=== PATIENT | male | born 1935 | race Caucasian/White ===

== ENCOUNTER 2023-02-26 16:20 | Inpatient (IN) ==
[2023-02-26] MEDS ORDERED: 0.9 % SODIUM CHLORIDE 1,000 ML IV SCH (17:00)
[2023-02-26] MEDS ORDERED: HYDROmorphone 0.5 MG/0.5 ML SYRINGE ONE (18:26)
[2023-02-26] MEDS: HYDROmorphone 0.5 MG/0.5 ML SYRINGE IV PRN (18:32)
[2023-02-26] MEDS: ACETAMINOPHEN 1,000 MG/100 ML BAG IV SCH (19:09)
[2023-02-26 19:15] LABS: Basophils # (Auto) 0.04 K/mcL (0.00-0.30); Basophils % (Auto) 0.2 % (0.0-2.0); Eosinophils # (Auto) 0.02 K/mcL (0.00-0.70); Eosinophils % (Auto) 0.1 % (0.0-7.0); Hematocrit 35.6 % (40.1-51.0); Hemoglobin 11.6 g/dL (13.7-17.5); Lymphocytes # (Auto) 1.64 K/mcL (1.50-4.80); Lymphocytes % (Auto) 9.1 % (15.5-49.0); Mean Cell Volume 90.6 fL (80.0-100.0); Mean Corpuscular HGB Conc 32.6 g/dL (31.0-36.0); Mean Platelet Volume 9.4 fL (8.8-12.5); Monocytes # (Auto) 0.84 K/mcL (0.10-0.90); Monocytes % (Auto) 4.7 % (1.0-12.0); Neutrophils % (Auto) 85.2 % (38.0-78.0); Platelet Count 255 K/mcL (140-440); RBC 3.93 M/mcL (4.63-6.08); Red Cell Distribution Width 13.6 % (11.5-14.5)
[2023-02-26 19:34] LABS: ALT/SGPT 10 U/L (<40); AST/SGOT 21 U/L (<40); Albumin 3.3 gm/dL (3.2-5.2); Albumin/Globulin Ratio 0.8 (1.0-2.3); Alkaline Phosphatase 81 U/L (39-117); Bilirubin,Direct < 0.2 mg/dL (0-0.3); Bilirubin,Total 0.6 mg/dL (0.1-1.0); Blood Urea Nitrogen 17 mg/dL (8-23); Carbon Dioxide 25 mmol/L (22-30); Chloride 98 mmol/L (96-108); Globulin 4.2 gm/dL (2.2-3.7); Glomerular Filtration Rate 80; Glucose 133 mg/dL (70-105); Lactate Dehydrogenase 223 U/L (135-225); Phosphorous 3.7 mg/dL (2.5-4.5); Triglycerides 83 mg/dL (<150); Uric Acid 5.1 mg/dL (2.5-8.0)
[2023-02-26] MEDS: oxyCODONE IR 5 MG TABLET PO PRN (19:45)
[2023-02-26] MEDS ORDERED: HALOPERIDOL LACTATE 5 MG/ML VIAL IV PRN (20:07)
[2023-02-26] MEDS ORDERED: 0.9 % SODIUM CHLORIDE 1,000 ML IV ONE (20:25)
[2023-02-26] MEDS ORDERED: ceFAZolin 1 GM VIAL ONE (20:29)
[2023-02-26] MEDS ORDERED: ceFAZolin 2 GM in DEXTROSE 5% IN WATER 50 ML IV SCH (20:30)
[2023-02-26] MEDS ORDERED: KETAMINE 50 MG/ML Syringe IV ONE (21:15)
[2023-02-26] MEDS ORDERED: SUGAMMADEX SODIUM 200 MG/2 ML VIAL IV ONE (21:15)
[2023-02-26] MEDS ORDERED: ONDANSETRON 4 MG/2 ML VIAL ONE (21:15)
[2023-02-26] MEDS ORDERED: ROCURONIUM 10 MG/ML ML IV ONE (21:15)
[2023-02-26] MEDS ORDERED: fentaNYL 100 MCG/2 ML VIAL IV ONE (21:15)
[2023-02-26] MEDS ORDERED: PHENYLephrine 1 MG/10 ML SYRINGE (ANEST) ONE (21:15)
[2023-02-26] MEDS: DOCUSATE SODIUM 100 MG CAPSULE PO SCH (21:43)
[2023-02-26] MEDS: SENNOSIDES 1 TABLET PO SCH (21:43)
[2023-02-26] MEDS ORDERED: LACTATED RINGERS 250 ML IV PRN (21:50)
[2023-02-26] MEDS ORDERED: IPRATROPIUM/ALBUTEROL 3 ML AMPUL.NEB NEB PRN (21:50)
[2023-02-26] MEDS ORDERED: fentaNYL 100 MCG/2 ML VIAL IV PRN (21:50)
[2023-02-26] MEDS ORDERED: NALOXONE HCL 0.4 MG/ML VIAL IV PRN (21:50)
[2023-02-26] MEDS: 0.9 % SODIUM CHLORIDE 10 ML SYRINGE IV SCH (22:06)
[2023-02-26] MEDS ORDERED: BUPIVACAINE W/EPI 0.5% 50 ML VIAL IJ ONE (22:19)
[2023-02-26] MEDS ORDERED: MEPERIDINE 25 MG/ML VIAL IV ONE (22:30)
[2023-02-26] MEDS: MEPERIDINE 50 MG/ML VIAL ONE ×2 (22:33→22:34)
[2023-02-26] MEDS: ceFAZolin 1 GM VIAL IV SCH (22:41)
[2023-02-26] MEDS: CEFEPIME 2 GM VIAL IV SCH (23:23)
[2023-02-26] MEDS: 0.9 % SODIUM CHLORIDE 1,000 ML IV SCH (23:23)
[2023-02-27] MEDS: ACETAMINOPHEN 1,000 MG/100 ML BAG IV SCH ×3 (01:05→17:23)
[2023-02-27] MEDS: 0.9 % SODIUM CHLORIDE 1,000 ML IV SCH ×2 (02:57→18:40)
[2023-02-27] MEDS: ONDANSETRON 4 MG/2 ML VIAL IV PRN ×2 (02:59→13:17)
[2023-02-27] MEDS: HYDROmorphone 0.5 MG/0.5 ML SYRINGE IV PRN ×6 (03:51→22:36)
[2023-02-27] MEDS: CEFEPIME 2 GM VIAL IV SCH ×2 (05:44→13:53)
[2023-02-27] MEDS: 0.9 % SODIUM CHLORIDE 10 ML SYRINGE IV SCH ×3 (05:46→22:24)
[2023-02-27] MEDS: ceFAZolin 1 GM VIAL IV SCH (06:44)
[2023-02-27] MEDS: ASPIRIN 325 MG ENTERIC COATED TABLET PO SCH ×2 (09:17→22:18)
[2023-02-27] MEDS: DOCUSATE SODIUM 100 MG CAPSULE PO SCH ×2 (09:17→22:18)
[2023-02-27] MEDS: oxyCODONE IR 5 MG TABLET PO PRN (13:50)
[2023-02-27] MEDS ORDERED: IOPAMIDOL 100 ML BOTTLE IV ONE (16:29)
[2023-02-27 16:38] LABS: Basophils # (Auto) 0.07 K/mcL (0.00-0.30); Basophils % (Auto) 0.5 % (0.0-2.0); Eosinophils # (Auto) 0.21 K/mcL (0.00-0.70); Eosinophils % (Auto) 1.5 % (0.0-7.0); Hematocrit 34.1 % (40.1-51.0); Hemoglobin 10.6 g/dL (13.7-17.5); Lymphocytes # (Auto) 1.85 K/mcL (1.50-4.80); Lymphocytes % (Auto) 12.9 % (15.5-49.0); Mean Corpuscular HGB Conc 31.1 g/dL (31.0-36.0); Mean Platelet Volume 9.6 fL (8.8-12.5); Monocytes # (Auto) 0.81 K/mcL (0.10-0.90); Monocytes % (Auto) 5.6 % (1.0-12.0); Neutrophils % (Auto) 78.9 % (38.0-78.0); Platelet Count 193 K/mcL (140-440); RBC 3.59 M/mcL (4.63-6.08); WBC 14.4 K/mcL (4.5-11.0)
[2023-02-27] MEDS ORDERED: ALBUTEROL SULFATE 2.5 MG/3 ML NEBULIZER NEB PRN (16:45)
[2023-02-27 16:47] LABS: ALT/SGPT 10 U/L (<40); AST/SGOT 53 U/L (<40); Albumin 2.8 gm/dL (3.2-5.2); Albumin/Globulin Ratio 0.7 (1.0-2.3); Alkaline Phosphatase 76 U/L (39-117); Bilirubin,Direct 0.2 mg/dL (<0.3); Bilirubin,Total 0.9 mg/dL (0.1-1.0); Blood Urea Nitrogen 20 mg/dL (8-23); Calcium 8.6 mg/dL (8.6-10.4); Carbon Dioxide 25 mmol/L (22-30); Chloride 103 mmol/L (96-108); Globulin 4.2 gm/dL (2.2-3.7); Glomerular Filtration Rate 76; Glucose 123 mg/dL (70-105); Lactate Dehydrogenase 249 U/L (135-225); Phosphorous 3.9 mg/dL (2.5-4.5); Triglycerides 101 mg/dL (<150); Uric Acid 4.9 mg/dL (2.5-8.0)
[2023-02-27 17:10] LABS: ABG Methemoglobin 0.3 % (0.4-1.5); Total Hemoglobin 11.4 gm/Dl (13.5-16.5); VBG Base Excess -5 (-2-3); VBG HCO3 21.5 mmol/L (24.0-28.0); VBG Oxygen Saturation 86.6 % (40.0-70.0); VBG PCO2 45.5 mmHg (41.0-51.0); VBG PH 7.29 U (7.32-7.42); VBG Total CO2 22.9 mmol/L (25.0-29.0)
[2023-02-27] MEDS: methylPREDNISolone SOD SUCC 125 MG/2 ML VIAL IV SCH ×2 (17:23→22:23)
[2023-02-27] MEDS: PIPERACILLIN SODIUM/TAZOBACTAM 4.5 GM in DEXTROSE 5% IN WATER 50 ML IV SCH ×2 (18:04→23:41)
[2023-02-27] MEDS: IPRATROPIUM/ALBUTEROL 3 ML AMPUL.NEB NEB SCH ×2 (19:07→23:41)
[2023-02-27] MEDS ORDERED: cefTRIAXone 1 GM VIAL IV SCH (20:00)
[2023-02-27] MEDS: SENNOSIDES 1 TABLET PO SCH (22:18)
[2023-02-28] MEDS: ACETAMINOPHEN 1,000 MG/100 ML BAG IV SCH ×3 (01:30→16:06)
[2023-02-28] MEDS: IPRATROPIUM/ALBUTEROL 3 ML AMPUL.NEB NEB SCH ×2 (02:40→06:21)
[2023-02-28] MEDS: HYDROmorphone 0.5 MG/0.5 ML SYRINGE IV PRN ×2 (04:36→07:04)
[2023-02-28] MEDS: 0.9 % SODIUM CHLORIDE 1,000 ML IV SCH (04:38)
[2023-02-28] MEDS: PIPERACILLIN SODIUM/TAZOBACTAM 4.5 GM in DEXTROSE 5% IN WATER 50 ML IV SCH (05:06)
[2023-02-28] MEDS: 0.9 % SODIUM CHLORIDE 10 ML SYRINGE IV SCH (05:16)
[2023-02-28] MEDS ORDERED: 0.9 % SODIUM CHLORIDE 1,000 ML IV SCH (05:25)
[2023-02-28 06:35] LABS: Basophils # (Auto) 0.02 K/mcL (0.00-0.30); Basophils % (Auto) 0.2 % (0.0-2.0); Eosinophils # (Auto) 0 K/mcL (0.00-0.70); Eosinophils % (Auto) 0 % (0.0-7.0); Hematocrit 31.7 % (40.1-51.0); Hemoglobin 9.7 g/dL (13.7-17.5); Lymphocytes # (Auto) 0.65 K/mcL (1.50-4.80); Lymphocytes % (Auto) 4.9 % (15.5-49.0); Mean Cell Volume 95.5 fL (80.0-100.0); Mean Corpuscular HGB Conc 30.6 g/dL (31.0-36.0); Mean Platelet Volume 9.6 fL (8.8-12.5); Monocytes # (Auto) 0.12 K/mcL (0.10-0.90); Monocytes % (Auto) 0.9 % (1.0-12.0); Neutrophils % (Auto) 93.5 % (38.0-78.0); Platelet Count 173 K/mcL (140-440); RBC 3.32 M/mcL (4.63-6.08); Red Cell Distribution Width 14.2 % (11.5-14.5); WBC 13.2 K/mcL (4.5-11.0)
[2023-02-28] MEDS ORDERED: HYDROmorphone 1 MG/ML SYRINGE IV PRN (07:02)
[2023-02-28] MEDS: LORazepam 2 MG/ML VIAL IV PRN ×4 (07:34→21:59)
[2023-02-28] MEDS: DOCUSATE SODIUM 100 MG CAPSULE PO SCH (08:01)
[2023-02-28] MEDS: ASPIRIN 325 MG ENTERIC COATED TABLET PO SCH (08:01)
[2023-02-28] MEDS ORDERED: cefTRIAXone 1 GM VIAL IV SCH ×2 (09:00)
[2023-02-28] MEDS ORDERED: 0.9 % SODIUM CHLORIDE 10 ML SYRINGE IV SCH (14:00)
[2023-02-28] MEDS ORDERED: morphine 4 MG/ML VIAL NEB PRN (16:31)
[2023-02-28] MEDS ORDERED: ONDANSETRON 4 MG ODT TABLET SL PRN (16:31)
[2023-02-28] MEDS ORDERED: LACTOPEROXI/GLUC OXID/POT THIO 1 EACH GEL..EA. TOPICAL PRN (16:31)
[2023-02-28] MEDS: morphine 4 MG/ML VIAL IV PRN ×3 (17:18→22:55)
[2023-03-01] MEDS: morphine 4 MG/ML VIAL IV PRN ×5 (00:50→19:09)
[2023-03-01] MEDS: LORazepam 2 MG/ML VIAL IV PRN ×3 (00:51→19:09)
[2023-03-02] MEDS: morphine 4 MG/ML VIAL IV PRN ×10 (07:49→23:50)
[2023-03-02] MEDS: LORazepam 2 MG/ML VIAL IV PRN ×9 (12:44→23:50)
== END 2023-03-03 05:12 | disposition expired | DRG 956 ==
LOC: MEDSUR 18:05
PROVIDERS: ADMIT Internal Medicine; ATTEND Internal Medicine